=== PATIENT | female | born 1965 | race Two or more races ===

== ENCOUNTER 2017-08-04 10:46 | Outpatient (CLI) ==
--- NOTE | 2017-08-04 11:32 | DI ---
EXAM: Five views of the lumbar spine. History: Right lower back pain. Comparison: Lumbar spine radiograph 06/21/2015 Findings: No acute fracture. Stable minimal anterolisthesis of L4 on L5 and stable minimal retrolis thesis of L3 on L4. Partial sacralization of L5 on the right. Slightly progressive multilevel degen erative disc space narrowing which is mild to moderate. Also slightly progressive moderate facet hyp ertrophy within the lower lumbar spine. Impression: No acute fracture. Slightly progressive degenerative changes.
== END 2017-08-04 10:47 | disposition home or self-care (01) ==
LOC: RAD 10:46
PROVIDERS: ATTEND Family Medicine
DX: M54.41 Lumbago with sciatica, right side (principal)

== ENCOUNTER 2019-01-07 12:14 | Outpatient (CLI) ==
--- NOTE | 2019-01-07 13:21 | DI ---
EXAM: Two views of the chest. History: Chest trauma. Comparison: Chest radiograph 06/30/2016. Findings: Heart size is normal. No focal consolidation. No appreciable pleural fluid and no pneumo thorax. No acute osseous abnormalities. Impression: No acute cardiopulmonary process
--- NOTE | 2019-01-07 13:22 | DI ---
Exam: Three views of the thoracic spine. Comparison: CT abdomen pelvis performed 06/29/2015. Reason for exam: Injury. FINDINGS: No acute fracture or listhesis. The vertebral body and intervertebral body disc space hei ghts are well maintained. Impression: No acute fracture or listhesis in the thoracic spine.
--- NOTE | 2019-01-07 13:22 | DI ---
EXAM: Three views of the left ankle. History: Left ankle trauma. Findings: Small to moderate plantar spur. No acute fracture or dislocation. Subcutaneous edema see n at the ankle. Mild arthritis at the mid foot with small osteophytes. Impression: 1. No acute osseous abnormality. 2. Subcutaneous edema. 3. Plantar spur
--- NOTE | 2019-01-07 13:29 | DI ---
Exam: Three views of the cervical spine. Comparison: CT soft tissue neck performed 07/17/2016. Reason for exam: Injury. FINDINGS: No acute fracture or listhesis. There is multilevel degenerative disease with interverteb ral body disc space height narrowing and osteophyte formation. The dens appears intact. Prevertebra l soft tissues are within normal limits. Impression: No acute fracture or listhesis in the cervical spine with mild degenerative disease.
--- NOTE | 2019-01-07 13:34 | DI ---
EXAM: Three views of the left foot. History: Left foot trauma. Findings: No acute fracture or dislocation. Small to moderate plantar spur. Mild to moderate narro wing of the first MTP joint with small osteophytes and marginal sclerosis. Mild degenerative changes seen at the mid foot with small osteophytes. Impression: 1. No acute osseous abnormality. 2. Plantar spur. 3. 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
== END 2019-01-07 12:15 | disposition home or self-care (01) ==
LOC: RAD 12:14
PROVIDERS: ATTEND Family Medicine
DX: M79.672 Pain in left foot (principal); M54.6 Pain in thoracic spine; R07.9 Chest pain, unspecified; M25.572 Pain in left ankle and joints of left foot; M54.2 Cervicalgia